=== PATIENT | male | born 1940 | race Caucasian/White ===

== ENCOUNTER 2016-12-15 11:45 | Emergency (ER) | payer MEDICARE, BC ==
--- NOTE | 2016-12-15 14:21 | EDM.PDOC ---
[id number] 4d NEEDS BLOOD/EVAL TO GET BLOOD Time Seen by Provider: 12/15/16 13:00 Source of Information: Reports: Patient, Other ( The nephologist called and felt the pt should have a unit of blood. ) History Limitations: Reports: No Limitations - History of Present Illness INITIAL COMMENTS - FREE TEXT/NARRATIVE: Pt has a history of impaired renal funtion and he is now anemic. He has been off of his iron supplements for 3 weeks. His hg was in the 6 range. Onset: Gradual Duration: Week(s): Associated Symptoms: Reports: Malaise, Weakness - Related Data Allergies Allergy/AdvReac Type Severity Reaction Status Date / Time atorvastatin Allergy Muscle Verified 12/15/16 13:10 Weakness Penicillins Allergy Hives Verified 12/15/16 13:10 Home Meds: Home Meds Metoprolol Tartrate [Lopressor] 25 mg PO BID 01/11/13 [History] Omeprazole [Prilosec] 20 mg PO DAILY 01/11/13 [History] Warfarin [Coumadin] 2.5 mg PO ASDIRECTED 01/11/13 [History] Aspirin [Halfprin] 81 mg PO DAILY 04/29/15 [History] Cholecalciferol (Vitamin D3) [Vitamin D3] 2,000 units PO DAILY 04/29/15 [History ] Ferrous Gluconate 1 tab PO DAILY 04/29/15 [History] Furosemide [Lasix] 20 mg PO ASDIRECTED 04/29/15 [History] Allopurinol [Zyloprim] 100 mg PO DAILY 12/15/16 [History] Lisinopril [Prinivil] 2.5 mg PO DAILY 12/15/16 [History] Warfarin [Coumadin] 0.5 tab PO DAILY 12/15/16 [History] Past Medical History Cardiovascular History: Reports: Afib, CAD, High Cholesterol, Hypertension Genitourinary History: Reports: Renal Calculus, Other (See Below) Other Genitourinary History: low kidney function Hematologic History: Reports: Anemia - Past Surgical History Cardiovascular Surgical History: Reports: Coronary Artery Stent, Valve Replacement Social & Family History - Tobacco Use Smoking Status *Q: Never Smoker - Alcohol Use Days Per Week of Alcohol Use: 3 Number of Drinks Per Day: 2 Total Drinks Per Week: 6 - Recreational Drug Use Recreational Drug Use: No ED ROS GENERAL - Review of Systems Review Of Systems: See Below Constitutional: Reports: No Symptoms HEENT: Reports: No Symptoms Respiratory: Reports: Shortness of Breath, Other ( Pt is intolerant of activity. He gets very sob. ) Cardiovascular: Reports: No Symptoms Endocrine: Reports: Fatigue GI/Abdominal: Reports: No Symptoms, Other (pt has not had ny bloody looking stools) : Reports: No Symptoms Musculoskeletal: Reports: No Symptoms Skin: Reports: No Symptoms Neurological: Reports: No Symptoms ED EXAM, GENERAL - Physical Exam Exam: See Below Free Text/Narrative:: pt ia a very pale appearing pt who has a known hg of 6.3. Exam Limited By: No Limitations General Appearance: Alert, Anxious, Other (pt does not want to here for several hours. ) Ears: Normal TMs Nose: Normal Inspection Throat/Mouth: Normal Inspection Head: Atraumatic Neck: Normal Inspection Respiratory/Chest: No Respiratory Distress Cardiovascular: Regular Rate, Rhythm GI/Abdominal: Soft, Non-Tender (Male) Exam: Deferred Rectal (Males) Exam: Deferred Extremities: Other ( no sig edema) Neurological: Alert, Oriented Psychiatric: Normal Affect Course - Vital Signs Last Recorded V/S: Last Vital Signs Temp 36.6 C 12/15/16 16:21 Pulse 93 12/15/16 16:21 Resp 18 12/15/16 16:21 BP 151/80 H 12/15/16 16:21 Pulse Ox 100 12/15/16 13:09 - Orders/Labs/Meds Labs: Laboratory Tests 12/15/16 12/15/16 12/15/16 Range/Units 13:15 13:17 13:17 WBC 6.5 (4.5-11.0) K/uL RBC 3.11 L (4.30-5.90) M/uL Hgb 6.3 L* (12.0-15.0) g/dL Hct 23.2 L (40.0-54.0) % MCV 75 L (80-98) fL MCH 20 L (27-31) pg MCHC 27 L (32-36) % Plt Count 309 (150-400) K/uL Neut % (Auto) 69 H (36-66) % Lymph % (Auto) 9 L (24-44) % [place] % (Auto) 18 H (2-6) % Eos % (Auto) 4 (2-4) % Baso % (Auto) 1 (0-1) % PT 20.2 H (9.5-12.0) sec INR 1.84 H (0.80-1.20) Sodium (140-148) mmol/L Potassium (3.6-5.2) mmol/L Chloride (100-108) mmol/L Carbon Dioxide (21-32) mmol/L Anion Gap (5.0-14.0) mmol/L BUN (7-18) mg/dL Creatinine (0.8-1.3) mg/dL Est Cr Clr Drug Dosing mL/min Estimated GFR (MDRD) (>60) Glucose (74-106) mg/dL Calcium (8.5-10.1) mg/dL Iron (65-175) ug/dL TIBC (250-450) ug/dl % Saturation (20-55) % Blood Type AB POSITIVE Gel Antibody Screen Negative Crossmatch See Detail 12/15/16 12/15/16 Range/Units 13:17 13:29 WBC (4.5-11.0) K/uL RBC (4.30-5.90) M/uL Hgb (12.0-15.0) g/dL Hct (40.0-54.0) % MCV (80-98) fL MCH (27-31) pg MCHC (32-36) % Plt Count (150-400) K/uL Neut % (Auto) (36-66) % Lymph % (Auto) (24-44) % [place] % (Auto) (2-6) % Eos % (Auto) (2-4) % Baso % (Auto) (0-1) % PT (9.5-12.0) sec INR (0.80-1.20) Sodium 139 L (140-148) mmol/L Potassium 4.1 (3.6-5.2) mmol/L Chloride 106 (100-108) mmol/L Carbon Dioxide 24 (21-32) mmol/L Anion Gap 13.1 (5.0-14.0) mmol/L BUN 31 H (7-18) mg/dL Creatinine 2.7 H (0.8-1.3) mg/dL Est Cr Clr Drug Dosing 23.28 mL/min Estimated GFR (MDRD) 23 L (>60) Glucose 130 H (74-106) mg/dL Calcium 9.3 (8.5-10.1) mg/dL Iron 13 L (65-175) ug/dL TIBC 533 H (250-450) ug/dl % Saturation 2 L (20-55) % Blood Type Gel Antibody Screen Crossmatch Meds: Medications Discontinued Medications Generic Name Dose Route Start Last Admin Trade Name Stanleyq PRN Reason Stop Dose Admin Sodium Chloride 1,000 mls @ 0 mls/hr 12/15/16 14:30 12/15/16 14:30 Normal Saline IV 25 mls/hr ASDIRECTED ULI Administration KVO - Re-Assessments/Exams Free Text/Narrative Re-Assessment/Exam: 12/15/16 14:22 Pt has a creatnine of 2.8. Hg was 6.3. He will be given a unit of blood. Departure - Departure Time of Disposition: 14:23 Disposition: Still A Patient 30 Condition: Fair Clinical Impression: Anemia, Renal insufficiency, Fe deficiency anemia - Discharge Information Referrals: Nancie Miranda, [employer] [Primary Care Provider] - Forms: ED Department Discharge Care Plan Goals: pt was given 1 unit of blood. He needs to resume his fe supplement-- iron stores are very low. appt with Nancie miranda in 1 week.
[2016-12-15] MEDS ORDERED: Sodium Chloride 0.9% 1,000 ML IV SCH (14:30)
[2016-12-15 16:26] VITALS: BP 151/80
== END 2016-12-15 14:20 | disposition still patient (30) ==
LOC: JP.ED 11:45
DX: D50.9 Iron deficiency anemia, unspecified (principal); N28.9 Disorder of kidney and ureter, unspecified; I48.91 Unspecified atrial fibrillation; I25.10 Atherosclerotic heart disease of native coronary artery without angina pectoris; I10 Essential (primary) hypertension; E78.00 Pure hypercholesterolemia, unspecified; Z87.442 Personal history of urinary calculi; Z95.5 Presence of coronary angioplasty implant and graft; Z95.2 Presence of prosthetic heart valve; Z79.82 Long term (current) use of aspirin; Z79.01 Long term (current) use of anticoagulants; Z79.899 Other long term (current) drug therapy; Z88.0 Allergy status to penicillin; Z88.8 Allergy status to other drugs, medicaments and biological substances
CPT/HCPCS: 36415; 36430; 80048; 83550; 85025; 85610; 86850; 86900; 86901; 86920; 86922; 96360; 96361; 99284; J7040; P9016; 99283

== ENCOUNTER 2017-02-24 06:11 | Day surgery (SDC) | payer MEDICARE, BC ==
[2017-02-24] MEDS ORDERED: Lactated Ringers 1,000 ML IV SCH (07:00)
[2017-02-24] MEDS ORDERED: Propofol 200 MG/20 ML SDV ONE (07:22)
[2017-02-24] MEDS ORDERED: Midazolam 1 MG/ML 2 ML SDV ONE (07:22)
[2017-02-24] MEDS ORDERED: fentaNYL 100 MCG/2 ML SDV ONE (07:22)
[2017-02-24 08:50] VITALS: BP 135/96
--- NOTE | 2017-02-24 11:32 | OR ---
DATE OF PROCEDURE: 02/24/2017 PREOPERATIVE DIAGNOSIS: Anemia. POSTOPERATIVE DIAGNOSES: Anemia, etiology unknown; antral gastritis; small duodenal polyp; and colonic diverticulosis. PROCEDURE: Esophagogastroduodenoscopy with biopsy resection of small duodenal polyp, biopsy of duodenum and antrum for CLOtest, biopsy of duodenum and antrum for pathology to look for Helicobacter pylori, and colonoscopy to the cecum. SURGEON: Kris Taylor MD. ANESTHESIA: IV anesthesia with monitored anesthesia care. INDICATION: This 76-year-old white male is referred for upper and lower endoscopy because of anemia. He says he did receive a unit of blood recently. He has never had a colonoscopic exam. I counseled him for upper and lower endoscopy with possible biopsy and/or polypectomy including risks and alternatives, and he gave his informed consent to proceed. DESCRIPTION OF PROCEDURE: The patient was placed in the left lateral decubitus position. IV anesthesia was administered by the Anesthesia Service. Time-out was held. The flexible video Olympus upper endoscope was passed through his mouth, down his esophagus, and into his stomach. The scope was easily passed through the pylorus into the duodenum, reaching its third portion. The scope was then slowly withdrawn, examining the mucosa throughout. There was some duodenal inflammation. In the duodenal bulb, we saw a small polyp, which was removed with a single bite of the biopsy forceps. The scope was brought up through the pylorus into the antrum. There was red streaking emanating from the pylorus consistent with mild gastritis. We obtained biopsies of the duodenum and antrum for CLOtest and for pathology to look for Helicobacter pylori. The scope was retroflexed. The proximal stomach appeared unremarkable. The scope was straightened and brought up to the GE junction. This appeared unremarkable. The scope was then brought up through the unremarkable appearing esophagus and was removed. Next, a rectal exam was performed, which was unremarkable. The flexible video Olympus colonoscope was introduced through his anus, up his rectum, and out his colon, all the way to the cecum. En route, we saw several left-sided diverticula. There was no bleeding or inflammation associated with them. Once the cecum was reached, the scope was slowly withdrawn, examining the mucosa throughout. No additional mucosal abnormalities were noted. No neoplastic lesions were seen. The scope was retroflexed in the rectum with the distal rectum appearing unremarkable. The scope was straightened and removed. He tolerated the procedure well. No obvious cause for his anemia. Kris Taylor MD /[id number] MTDD
== END 2017-02-24 09:12 | disposition home or self-care (01) ==
LOC: JP.SDS 06:11
PROVIDERS: ATTEND Surgery
DX: K57.30 Diverticulosis of large intestine without perforation or abscess without bleeding (principal); K31.7 Polyp of stomach and duodenum; K29.50 Unspecified chronic gastritis without bleeding; I12.9 Hypertensive chronic kidney disease with stage 1 through stage 4 chronic kidney disease, or unspecified chronic kidney disease; N18.3 Chronic kidney disease, stage 3 (moderate); I25.10 Atherosclerotic heart disease of native coronary artery without angina pectoris; E78.00 Pure hypercholesterolemia, unspecified; Z88.0 Allergy status to penicillin; Z88.8 Allergy status to other drugs, medicaments and biological substances; Z95.5 Presence of coronary angioplasty implant and graft; Z95.2 Presence of prosthetic heart valve
CPT/HCPCS: 43239; 45378; 87081; 88305; J2704; J3010; J7120; J2250

== ENCOUNTER 2022-11-05 09:46 | Emergency (ER) | payer MEDICARE ==
[2022-11-05 10:07] VITALS: BP 159/88; PULSE 75
[2022-11-05 10:52] LABS: BASOPHILS ABSOLUTE AUTO 0.05 K/uL (0.00-0.10); BASOPHILS PERCENT AUTO 0.6 % (0.1-1.3); EOSINOPHILS ABSOLUTE AUTO 0.36 K/uL (0.00-0.40); EOSINOPHILS PERCENT AUTO 4.4 % (0.0-5.4); HEMATOCRIT 40.8 % (38.4-49.7); HEMOGLOBIN 13.4 g/dL (12.9-16.9); IMMATURE GRAN ABSOLUTE AUTO 0.06 K/uL (0.00-0.23); IMMATURE GRAN PERCENT AUTO 0.7 % (0.0-0.7); LYMPHOCYTES ABSOLUTE AUTO 0.49 K/uL (0.8-3.3); MEAN CORPUSCULAR HEMOGLOBIN 32.2 pg (31.6-35.5); MEAN CORPUSCULAR HGB CONC 32.8 g/dL (31.6-35.5); MEAN CORPUSCULAR VOLUME 98.1 fL (81.4-99.0); MONOCYTES PERCENT AUTO 12.2 % (3.3-12.6); NEUTROPHILS ABSOLUTE AUTO 6.27 K/uL (1.0-7.6); NEUTROPHILS PERCENT AUTO 76.1 % (40.0-78.1); PLATELET COUNT,PLT 236 K/uL (130-375); RED BLOOD CELL COUNT 4.16 M/uL (4.14-5.76); WHITE BLOOD CELL COUNT,WBC 8.2 K/uL (3.2-11.0)
[2022-11-05 11:12] LABS: A/G RATIO 0.9 (1.2-2.2); ALANINE AMINOTRANSFERASE,ALT 62 U/L (12-78); ALBUMIN 3.6 g/dL (3.4-5.0); ALKALINE PHOSPHATASE 371 U/L (46-116); ASPARTATE AMNIOTRANSFERASE,AST 41 U/L (15-37); BILIRUBIN TOTAL 1.1 mg/dL (0.2-1.0); BLOOD UREA NITROGEN,BUN 25 mg/dL (7-18); CALCIUM 9.1 mg/dL (8.5-10.1); CARBON DIOXIDE,CO2 24 mmol/L (21-32); CHLORIDE,CL 103 mmol/L (100-108); CREATININE 2.4 mg/dL (0.8-1.3); EST CRCL DRUG DOSING (CG) 23.73 mL/min; ESTIMATED GFR 26 mL/min (>60); GLUCOSE RANDOM 177 mg/dL (74-106); POTASSIUM,K 3.3 mmol/L (3.6-5.2); PROTEIN TOTAL,TP 7.6 g/dL (6.4-8.2); SODIUM,NA 139 mmol/L (140-148)
[2022-11-05 11:13] LABS: ANION GAP 15.3 mmol/L (5.0-14.0)
== END 2022-11-05 11:34 | disposition home or self-care (01) ==
LOC: JP.ED 09:46
DX: M54.50 Low back pain, unspecified (principal); I48.91 Unspecified atrial fibrillation; I25.10 Atherosclerotic heart disease of native coronary artery without angina pectoris; I10 Essential (primary) hypertension; Z88.0 Allergy status to penicillin; Z88.8 Allergy status to other drugs, medicaments and biological substances; Z79.01 Long term (current) use of anticoagulants; Z79.899 Other long term (current) drug therapy
CPT/HCPCS: 36415; 80053; 85025; 99283

== ENCOUNTER 2023-11-11 08:07 | Day surgery (SDC) | payer MEDICARE ==
[2023-11-11 08:37] VITALS: PULSE 91
[2023-11-11] MEDS: Sodium Chloride 0.9% 10 ML Syringe FLUSH PRN (08:52)
[2023-11-11 09:51] VITALS: BP 176/98
== END 2023-11-11 10:06 | disposition home or self-care (01) ==
LOC: JP.SDS 08:07
PROVIDERS: ATTEND Ophthalmology
DX: H25.12 Age-related nuclear cataract, left eye (principal); H57.03 Miosis; J44.9 Chronic obstructive pulmonary disease, unspecified; I25.10 Atherosclerotic heart disease of native coronary artery without angina pectoris; I50.9 Heart failure, unspecified; N18.9 Chronic kidney disease, unspecified
CPT/HCPCS: 00142-QZ; J3490; V2632

== ENCOUNTER 2023-11-25 06:28 | Day surgery (SDC) | payer MEDICARE ==
[2023-11-25] MEDS: Sodium Chloride 0.9% 10 ML Syringe FLUSH ONE (07:07)
[2023-11-25 09:09] VITALS: BP 157/91; PULSE 96
== END 2023-11-25 09:00 | disposition home or self-care (01) ==
LOC: JP.SDS 06:28
PROVIDERS: ATTEND Ophthalmology
DX: H25.11 Age-related nuclear cataract, right eye (principal); H57.03 Miosis; I13.0 Hypertensive heart and chronic kidney disease with heart failure and stage 1 through stage 4 chronic kidney disease, or unspecified chronic kidney disease; I50.9 Heart failure, unspecified; N18.9 Chronic kidney disease, unspecified; J44.9 Chronic obstructive pulmonary disease, unspecified; I25.10 Atherosclerotic heart disease of native coronary artery without angina pectoris; I48.91 Unspecified atrial fibrillation; F17.200 Nicotine dependence, unspecified, uncomplicated
CPT/HCPCS: 66982; J3490; V2632

== ENCOUNTER 2025-04-20 11:39 | Emergency (ER) | payer MEDICARE ==
[2025-04-20 12:03] VITALS: BP 121/72
[2025-04-20 12:35] LABS: BASOPHILS PERCENT AUTO 0.3 % (0.1-1.3); EOSINOPHILS ABSOLUTE AUTO 0.41 K/uL (0.00-0.40); EOSINOPHILS PERCENT AUTO 5.5 % (0.0-5.4); IMMATURE GRAN ABSOLUTE AUTO 0.05 K/uL (0.00-0.23); IMMATURE GRAN PERCENT AUTO 0.7 % (0.0-0.7); LYMPHOCYTES ABSOLUTE AUTO 0.52 K/uL (0.8-3.3); LYMPHOCYTES PERCENT AUTO 7.0 % (11.4-47.7); MONOCYTES ABSOLUTE AUTO 1.27 K/uL (0.20-0.90); MONOCYTES PERCENT AUTO 17.2 % (3.3-12.6); NEUTROPHILS ABSOLUTE AUTO 5.13 K/uL (1.0-7.6); NEUTROPHILS PERCENT AUTO 69.3 % (40.0-78.1); PLATELET COUNT,PLT 262 K/uL (130-375); RED BLOOD CELL COUNT 2.54 M/uL (4.14-5.76); WHITE BLOOD CELL COUNT,WBC 7.4 K/uL (3.2-11.0)
[2025-04-20 12:36] LABS: BASOPHILS ABSOLUTE AUTO 0.02 K/uL (0.00-0.10)
[2025-04-20 12:51] LABS: INR 2.2
[2025-04-20 13:50] VITALS: PULSE 65
== END 2025-04-20 13:50 | disposition home or self-care (01) ==
LOC: JP.ED 11:39
DX: Z48.00 Encounter for change or removal of nonsurgical wound dressing (principal); I12.9 Hypertensive chronic kidney disease with stage 1 through stage 4 chronic kidney disease, or unspecified chronic kidney disease; N18.9 Chronic kidney disease, unspecified; I25.10 Atherosclerotic heart disease of native coronary artery without angina pectoris; E78.00 Pure hypercholesterolemia, unspecified; Z95.1 Presence of aortocoronary bypass graft; Z79.01 Long term (current) use of anticoagulants; Z79.899 Other long term (current) drug therapy; Z88.0 Allergy status to penicillin; Z88.8 Allergy status to other drugs, medicaments and biological substances; Z88.1 Allergy status to other antibiotic agents
CPT/HCPCS: 30901; 36415; 85025; 85610; 99282; 99283; A9270